=== PATIENT | female | born 1980 | race African-American/Black ===

== ENCOUNTER 2022-03-31 20:18 | Inpatient (IN) | payer OTHER ==
[~2022-03-31] VITALS: Ht 165.1 cm; Wt 50.3 kg
--- NOTE | 2022-03-31 20:30 | NUR ---
TO ER BED 9. [id number] FROM HOME FOR C/O ABD PAIN AND NAUSEA X 1 HOUR.HX OF PANCREATITIS. PT IS ALERT AND ORIENTED. RR IS EVEN AND NONLABORED. CONNECTED TO MONITOR. WARM BLANKET AND EMESIS BAG PROVIDED. AWAITING MD ORDERS
[2022-03-31] MEDS ORDERED: ONDANSETRON HCL/PF 4 MG/2 ML VIAL ONE (20:42)
[2022-03-31] MEDS ORDERED: MORPHINE SULFATE INJ 4 MG/ML DISP.SYRIN ONE ×2 (20:55→21:48)
[2022-03-31 20:56] LABS: BASOPHILS % (AUTO) 0.8 % (0.0-2.0); EOSINOPHILS % (AUTO) 0.1 % (0.0-6.0); HEMATOCRIT 40 % (33-45); HEMOGLOBIN 12.5 g/dL (11.5-14.8); LYMPHOCYTES # (AUTO) 1.2 K/uL (0.8-4.8); LYMPHOCYTES % (AUTO) 21.7 % (20.0-44.0); MEAN CORPUSCULAR HGB CONC 32 g/dl (31.0-36.0); MEAN CORPUSCULAR VOLUME 87 fL (82-100); MONOCYTES # (AUTO) 0.4 K/uL (0.1-1.30); MONOCYTES % (AUTO) 6.3 % (2.0-12.0); NEUTROPHILS # (AUTO) 3.9 K/uL (1.8-8.9); NEUTROPHILS % (AUTO) 71.1 % (43.0-81.0); PLATELET COUNT (AUTO) 561 K/uL (150-450); RED BLOOD CELL COUNT(AUTO) 4.56 MIL/uL (4.0-5.2); WHITE BLOOD COUNT (AUTO) 5.6 K/uL (4.3-11.0)
[2022-03-31] MEDS ORDERED: MORPHINE SULFATE INJ 2 MG/ML DISP.SYRIN IV ONE ×2 (21:00→22:00)
[2022-03-31] MEDS ORDERED: IV NS 0.9% 1,000 ML BAG IV ONE (21:00)
[2022-03-31] MEDS ORDERED: ONDANSETRON HCL/PF 4 MG/2 ML VIAL IVP ONE (21:00)
[2022-03-31 21:10] LABS: CALCIUM, SERUM 9.6 mg/dL (8.5-10.1); CREATININE 0.9 mg/dL (0.6-1.3); POTASSIUM 3.4 mmol/L (3.5-5.1)
[2022-03-31 21:16] LABS: ALBUMIN 4.7 g/dL (3.4-5.0); BILIRUBIN,DIRECT 0.3 mg/dL (0.0-0.2); BILIRUBIN,TOTAL 1.3 mg/dL (0.2-1.0); TOTAL PROTEIN, SERUM 9.9 g/dL (6.4-8.2)
[2022-03-31] MEDS ORDERED: METOCLOPRAMIDE HCL 10 MG/2 ML VIAL ONE (21:49)
[2022-03-31] MEDS ORDERED: METOCLOPRAMIDE HCL 10 MG/2 ML VIAL IV ONE (22:00)
--- NOTE | 2022-03-31 22:07 | NUR ---
WAIVER SIGNED RADIOLOGY NOTIFIED
--- NOTE | 2022-03-31 22:16 | NUR ---
PATIENT GOING TO CT
[2022-03-31] MEDS ORDERED: IOHEXOL-300 100 ML VIAL IV ONE (22:18)
[2022-03-31] MEDS ORDERED: IV NS 0.9% 250 ML IV ONE (22:18)
--- NOTE | 2022-03-31 22:43 | NUR ---
COVID SWAB DONE AND SENT TO LAB
[2022-03-31] MEDS ORDERED: Z GUARD REMEDY 4 OZ OINT TP PRN (23:30)
[2022-03-31] MEDS ORDERED: MORPHINE SULFATE INJ 2 MG/ML DISP.SYRIN IV PRN (23:30)
[2022-03-31] MEDS ORDERED: ZOLPIDEM TARTRATE 5 MG TABLET PO PRN (23:30)
[2022-03-31] MEDS ORDERED: DEXTROSE 50%-WATER 50 ML DISP.SYRIN IV PRN (23:30)
[2022-03-31] MEDS ORDERED: MAGNESIUM HYDROXIDE 30 ML UDC PO PRN (23:30)
[2022-03-31] MEDS ORDERED: MAG HYDROX/AL HYDROX/SIMETH 30 ML UDC PO PRN (23:30)
[2022-03-31] MEDS ORDERED: ACETAMINOPHEN 325 MG TABLET PO PRN (23:30)
[2022-03-31] MEDS ORDERED: INSULIN REGULAR, HUMAN 100 UNIT/ML 3 ML VIAL SQ PRN (23:30)
--- NOTE | 2022-04-01 01:06 | NUR ---
PT IS SLEEPING, EASILY AROUSABLE WITH VERBAL STIMULI. CONNECTED TO MONITOR.
[2022-04-01] MEDS ORDERED: MORPHINE SULFATE INJ 2 MG/ML DISP.SYRIN ONE (02:44)
[2022-04-01] MEDS ORDERED: ONDANSETRON HCL/PF 4 MG/2 ML VIAL ONE (02:44)
[2022-04-01] MEDS: MORPHINE SULFATE INJ 2 MG/ML DISP.SYRIN IV PRN ×4 (02:50→21:05)
[2022-04-01] MEDS: ONDANSETRON HCL/PF 4 MG/2 ML VIAL IVP PRN ×2 (02:50→21:05)
[2022-04-01] MEDS: METOCLOPRAMIDE HCL 10 MG/2 ML VIAL IV SCH ×4 (06:00→17:08)
[2022-04-01] MEDS ORDERED: BLOOD SUGAR DIAGNOSTIC 1 EACH STRIP IN SCH (07:30)
--- NOTE | 2022-04-01 07:49 | NUR ---
REPORT GIVEN TO YUKI FOR ISSA
[2022-04-01 07:50] LABS: BASOPHILS % (AUTO) 0.9 % (0.0-2.0); EOSINOPHILS % (AUTO) 0.3 % (0.0-6.0); HEMATOCRIT 31 % (33-45); HEMOGLOBIN 9.9 g/dL (11.5-14.8); LYMPHOCYTES # (AUTO) 2.7 K/uL (0.8-4.8); LYMPHOCYTES % (AUTO) 51.9 % (20.0-44.0); MEAN CORPUSCULAR HGB CONC 32 g/dl (31.0-36.0); MEAN CORPUSCULAR VOLUME 86 fL (82-100); MONOCYTES # (AUTO) 0.6 K/uL (0.1-1.30); MONOCYTES % (AUTO) 11.2 % (2.0-12.0); NEUTROPHILS # (AUTO) 1.9 K/uL (1.8-8.9); NEUTROPHILS % (AUTO) 35.7 % (43.0-81.0); PLATELET COUNT (AUTO) 416 K/uL (150-450); RED BLOOD CELL COUNT(AUTO) 3.55 MIL/uL (4.0-5.2); WHITE BLOOD COUNT (AUTO) 5.3 K/uL (4.3-11.0)
[2022-04-01] MEDS ORDERED: INSU100V10 SQ (07:51)
[2022-04-01] MEDS ORDERED: INSU100V SQ (07:51)
[2022-04-01] MEDS ORDERED: HYDR-3980 PO (07:51)
[2022-04-01 08:07] LABS: ALBUMIN 2.8 g/dL (3.4-5.0); BILIRUBIN,TOTAL 1.1 mg/dL (0.2-1.0); CALCIUM, SERUM 8.2 mg/dL (8.5-10.1); CREATININE 0.8 mg/dL (0.6-1.3); MAGNESIUM 1.9 mg/dL (1.8-2.4); PHOSPHORUS 4.4 mg/dL (2.5-4.9); POTASSIUM 3.2 mmol/L (3.5-5.1); TOTAL PROTEIN, SERUM 6.4 g/dL (6.4-8.2)
--- NOTE | 2022-04-01 08:19 | NUR ---
PT TRANSFERRED TO [facility] VIA GURNEY. HANDOFF GIVEN TO RN ASSIGNED.
[2022-04-01 08:20] VITALS: BP 123/79
--- NOTE | 2022-04-01 08:20 | NUR ---
MS RN OPENING NOTES RECEIVED PATIENT FROM ER ENDORSED BY VÍCTOR SHEPPARD VIA LANRE AWAKE AND A/O X4. ON ROOM AIR TOLERATING WELL. NO SOB NOTED. NOT IN DISTRESS. WITH COMPLAINTS OF EPIGASTRIC PAIN AT THE SCALE OF 5/10, COMFORT MEASURES PROVIDED. WITH IV ACCESS AT THE RIGHT AC G20 AND AT THE LEFT AC G20, SALINE LOCKED, PATENT AND INTACT. SKIN IS INTACT. SAFETY MEASURES IN PLACED. CALL LIGHT WITHIN REACH. BED ON LOWEST LOCKED POSITION, SIDE RAILS UP X2. WILL CONTINUE TO MONITOR..
[2022-04-01] MEDS ORDERED: PANTOPRAZOLE 40 MG VIAL IV SCH (09:00)
--- NOTE | 2022-04-01 09:19 | NUR ---
SS consult requested over the weekend for ETOH Abuse. SW will follow up at a later time.
[2022-04-01] MEDS: IV NS 0.9% 1,000 ML IV PRN (09:53)
[2022-04-01] MEDS ORDERED: DEXTROSE 50%-WATER 50 ML DISP.SYRIN IV PRN (10:30)
[2022-04-01 10:49] VITALS: BP 123/79
[2022-04-01] MEDS: POTASSIUM CL. PREMIX PERIPHER. 50 ML IV SCH ×2 (11:54→13:54)
[2022-04-01] MEDS: METRONIDAZOLE 250 MG TABLET PO SCH ×4 (11:57→21:06)
[2022-04-01] MEDS: CIPROFLOXACIN HCL 250 MG TABLET PO SCH ×2 (11:57→21:06)
[2022-04-01] MEDS: BLOOD SUGAR DIAGNOSTIC 1 EACH STRIP IN SCH ×3 (12:05→21:26)
[2022-04-01] MEDS: INSULIN REGULAR, HUMAN 100 UNIT/ML 3 ML VIAL SQ PRN ×2 (12:09→17:50)
--- NOTE | 2022-04-01 14:25 | NUR ---
SS consult requested for ETOH abuse. Pt. is a 41-year-old female who was admitted to [facility] on 04/01/22 due to pancreatitis. Upon SS consult, pt. is alert and oriented x4. Pt. presents with a normal mood and congruent affect. Pt. appears unkempt and provides appropriate eye contact. Pt. was cooperative throughout the interview. Pt. stated she lives with her cousin at [address] [place] [address]. Pt. stated she did not want to provide any primary contact center specialist information. sales planner explored pt.s substance abuse history. Pt. denied substance use and stated she has not had alcohol in five years. Pt. denied addiction resources. sales planner explored pt.s psychiatric history. Pt. stated she does not have a psychiatric diagnosis. Pt. denied suicidal/homicidal ideation. Pt. denied visual and auditory hallucinations. sales planner will remain available as needed.
[2022-04-01] MEDS ORDERED: POTASSIUM CHLORIDE 10 MEQ TABLET.SA PO ONE ×2 (17:00→17:30)
--- NOTE | 2022-04-01 18:21 | NUR ---
MS RN CLOSING NOTES PATIENT ON BED AWAKE WATCHING TV AND A/O X4. ON ROOM AIR TOLERATING WELL. NO SOB NOTED. NOT IN DISTRESS. WITH NO COMPLAINTS OF PAIN OR DISCOMFORT AT THIS TIME. WITH IV ACCESS AT THE RIGHT AC G20 AND AT THE LEFT AC G20 WITH IVF NS AT 125ML/HR INFUSING WELL. DUE MEDS GIVEN. SAFETY MEASURES IN PLACED. CALL LIGHT WITHIN REACH. BED ON LOWEST LOCKED POSITION, SIDE RAILS UP X2. WILL ENDORSE TO NEXT SHIFT FOR ISSA.
[2022-04-01 20:00] VITALS: BP 109/66
--- NOTE | 2022-04-01 20:02 | NUR ---
RN NOTES RECEIVED REPORT FROM KRISTY JASSO PLAN OF CARE
--- NOTE | 2022-04-01 20:02 | NUR ---
MS RENEE NOTES PATIENT REQUESTED TO BE DISCONNECTED FROM IV FLUIDS SO SHE CAN AMBULATE BEFORE IVF DUE AT 2100. Addendum: 04/01/22 at 2043 by GENNARO STEVENS RN ERROR, WRONG PATIENT
[2022-04-01 21:34] VITALS: BP 109/66
[2022-04-02] MEDS: METOCLOPRAMIDE HCL 10 MG/2 ML VIAL IV SCH ×4 (01:07→11:22)
[2022-04-02] MEDS: MORPHINE SULFATE INJ 2 MG/ML DISP.SYRIN IV PRN ×3 (01:08→11:36)
[2022-04-02] MEDS ORDERED: FUROSEMIDE 40 MG/4 ML VIAL IV ONE (02:00)
[2022-04-02] MEDS: METRONIDAZOLE 250 MG TABLET PO SCH ×2 (05:20→13:00)
[2022-04-02] MEDS: IV NS 0.9% 1,000 ML IV PRN (05:47)
[2022-04-02 06:31] LABS: BASOPHILS % (AUTO) 0.7 % (0.0-2.0); EOSINOPHILS % (AUTO) 1.4 % (0.0-6.0); HEMATOCRIT 29 % (33-45); HEMOGLOBIN 9.5 g/dL (11.5-14.8); LYMPHOCYTES # (AUTO) 1.9 K/uL (0.8-4.8); LYMPHOCYTES % (AUTO) 47.6 % (20.0-44.0); MEAN CORPUSCULAR HGB CONC 32 g/dl (31.0-36.0); MEAN CORPUSCULAR VOLUME 87 fL (82-100); MONOCYTES # (AUTO) 0.3 K/uL (0.1-1.30); MONOCYTES % (AUTO) 8.4 % (2.0-12.0); NEUTROPHILS # (AUTO) 1.7 K/uL (1.8-8.9); NEUTROPHILS % (AUTO) 41.9 % (43.0-81.0); PLATELET COUNT (AUTO) 393 K/uL (150-450); RED BLOOD CELL COUNT(AUTO) 3.38 MIL/uL (4.0-5.2); WHITE BLOOD COUNT (AUTO) 3.9 K/uL (4.3-11.0)
[2022-04-02] MEDS: BLOOD SUGAR DIAGNOSTIC 1 EACH STRIP IN SCH ×3 (06:31→17:11)
--- NOTE | 2022-04-02 06:32 | NUR ---
MS RN CLOSING NOTES PATIENT ON BED AWAKE WATCHING TV AND A/O X4. ABLE TO MAKE NEEDS KNOWN; BREATHING EVEN AND UNLABORED; TOLERATING ROOM AIR WELL; NO SOB NOTED. NOT IN DISTRESS. LEFT WRIST #22 INTACT AND PATENT; DUE MEDS GIVEN; PATIENT REPORTED PAIN MANAGEMENT HELPED THROUGHOUT SHIFT; ALL NEEDS RENDERED; SAFETY MEASURES IN PLACED. CALL LIGHT WITHIN REACH. BED ON LOWEST LOCKED POSITION, SIDE RAILS UP X2. WILL ENDORSE TO NEXT SHIFT FOR ISSA.
[2022-04-02 07:14] LABS: CALCIUM, SERUM 8.1 mg/dL (8.5-10.1); CREATININE 0.7 mg/dL (0.6-1.3); MAGNESIUM 1.7 mg/dL (1.8-2.4); PHOSPHORUS 4.6 mg/dL (2.5-4.9); POTASSIUM 4.3 mmol/L (3.5-5.1)
--- NOTE | 2022-04-02 07:30 | NUR ---
MS RN OPENING NOTES RECEIVED PATIENT ON BED RESTING AND A/O X4. ON ROOM AIR TOLERATING WELL. NO SOB NOTED. NOT IN DISTRESS. WITH NO COMPLAINTS OF PAIN OR DISCOMFORT AT THIS TIME. WITH IV ACCESS AT THE LEFT WRIST G22 WITH IVF NS AT 125ML/HR INFUSING WELL. SAFETY MEASURES IN PLACED. CALL LIGHT WITHIN REACH. BED ON LOWEST LOCKED POSITION, SIDE RAILS UP X2. WILL CONTINUE TO MONITOR.
[2022-04-02 08:00] VITALS: BP 124/88
[2022-04-02] MEDS: CIPROFLOXACIN HCL 250 MG TABLET PO SCH (08:31)
[2022-04-02] MEDS ORDERED: PANTOPRAZOLE 40 MG TABLET.DR PO SCH (09:00)
[2022-04-02] MEDS ORDERED: MAGNESIUM OXIDE 400 MG TABLET PO ONE (11:00)
[2022-04-02] MEDS: INSULIN REGULAR, HUMAN 100 UNIT/ML 3 ML VIAL SQ PRN (11:43)
[2022-04-02] MEDS ORDERED: METR500T PO (15:41)
[2022-04-02] MEDS ORDERED: CIPR500T5 PO (15:41)
[2022-04-02 16:00] VITALS: BP 134/91
--- NOTE | 2022-04-02 17:30 | NUR ---
MS CITRUS PEELER NOTES PATIENT WAS SEEN BY DR. DONAHUE AND ORDERED PATIENT FOR DISCHARGE WHEN PATIENT IS ABLE TO TOLERATE CLEAR LIQUID LIQUID DIET. FOR DISCHARGE TO HOME. PT WAS ABLE TO TOLERATE HER DIET. DISCHARGE INSTRUCTION AND EDUCATION WERE PROVIDED TO THE PATIENT. PATIENT VERBALIZED UNDERSTANDING. IV LINE NAME WRIST BAND REMOVED. ACCOMPANIED PATIENT TO THE [facility] AMBULATORY IN STABLE CONDITION. MD AND CHARGE NURSE ARE AWARE OF THE DISCHARGE.
== END 2022-04-02 17:44 | disposition home or self-care (01) | DRG 282 ==
LOC: ER 20:21 → TRANSITION 04-01 02:28 → MED 04-01 07:51
PROVIDERS: ADMIT Nurse Practitioner Acute Care; ATTEND Student in an Organized Health Care Education/Training Program
DX: K85.20 Alcohol induced acute pancreatitis without necrosis or infection (principal); E11.9 Type 2 diabetes mellitus without complications; K86.0 Alcohol-induced chronic pancreatitis; E80.6 Other disorders of bilirubin metabolism; Z20.822 Contact with and (suspected) exposure to COVID-19; Z72.89 Other problems related to lifestyle; Y90.9 Presence of alcohol in blood, level not specified; K52.9 Noninfective gastroenteritis and colitis, unspecified
CPT/HCPCS: 36415; 80048-TC; 80053-TC; 80076-TC; 82962-TC; 83690-TC; 83735-TC; 84100-TC; 84703-TC; 85025-TC; 87081-TC; C9113; C9803; G0378; J1815; J2270; J2405; J2765; J3480; J7030; J7050; Q9967

== ENCOUNTER 2022-04-16 19:37 | Inpatient (IN) | payer OTHER ==
[~2022-04-16] VITALS: Ht 165.1 cm; Wt 50.8 kg
[~2022-04-16 19:37] MED LIST: CIPR500T5 PO; HYDR-3980 PO; INSU100V SQ; INSU100V10 SQ; METR500T PO
--- NOTE | 2022-04-16 19:45 | NUR ---
[id number] FROM HOME C/O ABD PAIN STARTED THIS AFTERNOON. PATIENT IS AAOX4. AMBULATORY. ABLE TO MAKE NEEDS KNOWN. ATTACHED TO MONITOR. VITALS CHECKED. PATIENT CAME WITH PERIPHERAL LINE ON LEFT HAND G20.
--- NOTE | 2022-04-16 19:48 | NUR ---
URINE SPECIMEN SENT TO LAB.
[2022-04-16] MEDS ORDERED: ONDANSETRON HCL/PF 4 MG/2 ML VIAL ONE (20:15)
[2022-04-16] MEDS ORDERED: MORPHINE SULFATE INJ 4 MG/ML DISP.SYRIN ONE (20:15)
[2022-04-16] MEDS ORDERED: IV NS 0.9% 1,000 ML BAG IV ONE (20:30)
[2022-04-16] MEDS ORDERED: ONDANSETRON HCL/PF 4 MG/2 ML VIAL IVP ONE (20:30)
[2022-04-16] MEDS ORDERED: MORPHINE SULFATE INJ 2 MG/ML DISP.SYRIN IV ONE (20:30)
[2022-04-16 20:51] LABS: BASOPHILS % (AUTO) 0.8 % (0.0-2.0); EOSINOPHILS % (AUTO) 0.1 % (0.0-6.0); HEMATOCRIT 35 % (33-45); HEMOGLOBIN 10.7 g/dL (11.5-14.8); LYMPHOCYTES # (AUTO) 1.3 K/uL (0.8-4.8); LYMPHOCYTES % (AUTO) 23.7 % (20.0-44.0); MEAN CORPUSCULAR HGB CONC 30 g/dl (31.0-36.0); MEAN CORPUSCULAR VOLUME 88 fL (82-100); MONOCYTES # (AUTO) 0.5 K/uL (0.1-1.30); NEUTROPHILS # (AUTO) 3.8 K/uL (1.8-8.9); NEUTROPHILS % (AUTO) 67.4 % (43.0-81.0); PLATELET COUNT (AUTO) 426 K/uL (150-450); RED BLOOD CELL COUNT(AUTO) 4.02 MIL/uL (4.0-5.2); WHITE BLOOD COUNT (AUTO) 5.6 K/uL (4.3-11.0)
[2022-04-16 21:11] LABS: ALBUMIN 3.6 g/dL (3.4-5.0); BILIRUBIN,DIRECT 0.2 mg/dL (0.0-0.2); BILIRUBIN,TOTAL 0.7 mg/dL (0.2-1.0); CALCIUM, SERUM 9.3 mg/dL (8.5-10.1); CREATININE 0.9 mg/dL (0.6-1.3); POTASSIUM 3.9 mmol/L (3.5-5.1); TOTAL PROTEIN, SERUM 8.1 g/dL (6.4-8.2)
--- NOTE | 2022-04-16 21:23 | NUR ---
CRITICAL BS 737
[2022-04-16 21:30] LABS: BILIRUBIN,URINE NEGATIVE (NEGATIVE); COLOR,URINE YELLOW (YELLOW); LEUKOCYTE ESTERASE ,URINE NEGATIVE (NEGATIVE); NITRITE, URINE NEGATIVE (NEGATIVE); PH,URINE 5.5 (5.0-8.0); PROTEIN,URINE NEGATIVE (NEGATIVE); UGLUCOSE >=1000 mg/dL (NEGATIVE); UROBILINOGEN,URINE 0.2 EU/dL (0.2)
[2022-04-16] MEDS ORDERED: IV NS 0.9% 1,000 ML IV ONE (22:00)
[2022-04-16] MEDS ORDERED: INSULIN REGULAR, HUMAN 100 UNIT/ML 10 ML VIAL SQ ONE (22:00)
--- NOTE | 2022-04-16 23:18 | NUR ---
ROOM 320-2
[2022-04-16] MEDS ORDERED: INSULIN DETEMIR 100 UNIT/ML CARTRIDGE SQ SCH (23:30)
[2022-04-16] MEDS ORDERED: ACETAMINOPHEN 325 MG TABLET PO PRN (23:30)
[2022-04-16] MEDS ORDERED: IV NS 0.9% 1,000 ML IV PRN (23:30)
--- NOTE | 2022-04-16 23:36 | NUR ---
CLINICALS INFORMATION RELAY TO CARMELA CHICKEN HATCHERY HELPER. GAVE VERBAL AUTH FOR PT TO STAY
[2022-04-17] VITALS: BP 128/99
--- NOTE | 2022-04-17 00:12 | NUR ---
MRSA SWAB DONE ON RIGHT NOSTRIL AND SENT TO LAB
[2022-04-17] MEDS ORDERED: *INSULIN REGULAR(HUMULIN R)HUM 100 UNIT/ML VIAL SQ PRN (00:30)
[2022-04-17] MEDS ORDERED: DEXTROSE 50%-WATER 50 ML DISP.SYRIN IV PRN (00:30)
--- NOTE | 2022-04-17 00:30 | NUR ---
WHEELED PATIENT TO M/S HICKS 320-2
--- NOTE | 2022-04-17 00:35 | NUR ---
RN ADMITTING NOTE PATIENT RECEIVED FROM CHANA RENEE FROM ER FOR HYPERGLYCEMIA. PATIENT IS A/O X 4 ABLE TO MAKE NEEDS KNOWN. PATIENT IS ON RA, TOLERATING WELL WITH 100% O2 SATURATION. PATIENT COMPLAINS OF 9/10 ABDOMINAL PAIN, WILL MANAGE PAIN APPROPRIATELY. PER PATIENT, SHE LIVES ALONE. ONLY DRINKS OCCASIONALLY AND DENIES ANY ALCOHOL ABUSE. COVID VACCINATED X 2. PATIENT IS AMBULATORY AND CONTINENT. LFA 20 G PATENT AND INTACT. BELONGINGS INVENTORIED. ORIENTED PATIENT TO ROOM, RN, AND SOCIAL SCIENCE ANALYST. SAFETY MEASURES IN PLACE: BED LOCKED AND IN LOWEST POSITION, CALL LIGHT WITHIN REACH, SIDE RAILS UP. WILL MONITOR PATIENT CLOSELY.
[2022-04-17] MEDS: MORPHINE SULFATE INJ 2 MG/ML DISP.SYRIN IV PRN ×6 (00:43→20:13)
--- NOTE | 2022-04-17 00:43 | NUR ---
RN NOTE PATIENT GIVEN MORPHINE D/T PAIN ON ABDOMEN 04/20.
[2022-04-17] MEDS: IV NS 0.9% 1,000 ML IV PRN ×3 (00:52→20:14)
[2022-04-17] MEDS: INSULIN GLARGINE, 100 UNIT/ML CARTRIDGE SQ SCH ×2 (01:18→22:00)
[2022-04-17] MEDS: ONDANSETRON HCL/PF 4 MG/2 ML VIAL IVP PRN ×2 (01:24→10:17)
--- NOTE | 2022-04-17 01:24 | NUR ---
RN NOTE LEVIMIR NOT AVAILABLE IN THIS HOSPITAL, ORDER CHANGED TO LANTUS 20 UNITS SQ QHS. BS 164 MG/DL, LANTUS GIVEN. ZOFRAN ALSO ADMINISTERED D/T PATIENT BEING NAUSEOUS.
--- NOTE | 2022-04-17 05:35 | NUR ---
RN NOTE PATIENT GIVEN MORPHINE FOR PAIN 9/10 ON THE ABDOMEN.
[2022-04-17] MEDS: BLOOD SUGAR DIAGNOSTIC 1 EACH STRIP VI SCH ×4 (06:37→22:01)
[2022-04-17] MEDS: INSULIN REGULAR, HUMAN 100 UNIT/ML 3 ML VIAL SQ PRN ×3 (06:39→17:08)
[2022-04-17 06:40] LABS: BASOPHILS % (AUTO) 0.6 % (0.0-2.0); EOSINOPHILS % (AUTO) 0.7 % (0.0-6.0); HEMATOCRIT 30 % (33-45); HEMOGLOBIN 9.5 g/dL (11.5-14.8); LYMPHOCYTES # (AUTO) 2.8 K/uL (0.8-4.8); LYMPHOCYTES % (AUTO) 40.2 % (20.0-44.0); MEAN CORPUSCULAR HGB CONC 32 g/dl (31.0-36.0); MEAN CORPUSCULAR VOLUME 86 fL (82-100); MONOCYTES # (AUTO) 0.9 K/uL (0.1-1.30); MONOCYTES % (AUTO) 12.7 % (2.0-12.0); NEUTROPHILS # (AUTO) 3.2 K/uL (1.8-8.9); NEUTROPHILS % (AUTO) 45.8 % (43.0-81.0); PLATELET COUNT (AUTO) 391 K/uL (150-450); RED BLOOD CELL COUNT(AUTO) 3.47 MIL/uL (4.0-5.2)
--- NOTE | 2022-04-17 07:03 | NUR ---
RN CLOSING NOTE PATIENT IN BED, AWAKE. PATIENT'S PAIN MANAGED WITH MORPHINE IV PRN. NO NAUSEA AT THIS TIME. BS 86 MG/DL, NO COVERAGE GIVEN. L HAND IV ACCESS STILL PATENT AND INTACT, INFUSING NS AT 125 ML/HR. SAFETY MEASURES IMPLEMENTED. ALL NEEDS MET AND ATTENDED. ALL ORDERS CARRIED OUT. WILL ENDORSE TO DAY SHIFT NURSE FOR ISSA.
[2022-04-17 07:23] LABS: CALCIUM, SERUM 8.6 mg/dL (8.5-10.1); CREATININE 0.5 mg/dL (0.6-1.3); MAGNESIUM 1.8 mg/dL (1.8-2.4); PHOSPHORUS 3.8 mg/dL (2.5-4.9); POTASSIUM 3.6 mmol/L (3.5-5.1)
--- NOTE | 2022-04-17 07:25 | NUR ---
RN OPENING NOTES RECEIVED PATIENT IN BED, AWAKE, A/O X4, VERBALLY RESPONSIVE. NO SIGNS OF ACUTE DISTRESS NOTED. DENIES ANY PAIN OR DISCOMFORT AT THIS TIME. STABLE ON ROOM AIR, NO SOB NOTED, BREATHING EVEN AND UNLABORED. NOTED WITH IV ACCESS ON LEFT HAND #20G, INTACT AND PATENT, WITH NS @125ML/HR RUNNING. SAFETY MEASURE IN PLACE, BED IN LOWEST AND LOCKED POSITION, SIDE RAILS UP X2, CALL LIGHT PLACED WITHIN EASY REACH. WILL CONTINUE TO MONITOR PATIENT.
[2022-04-17 08:00] VITALS: BP 107/78
[2022-04-17 16:00] VITALS: BP 113/76
--- NOTE | 2022-04-17 18:37 | NUR ---
RN CLOSING NOTES PATIENT IN BED, AWAKE, A/O X4, VERBALLY RESPONSIVE. NO SIGNS OF ACUTE DISTRESS NOTED. REMAINS STABLE ON ROOM AIR, NO SOB NOTED, BREATHING EVEN AND UNLABORED. IV ACCESS ON LEFT HAND #20G, INTACT AND PATENT, WITH NS @125ML/HR INFUSING WELL. MEDICATED WITH MORPHINE FOR C/O ABDOMINAL PAIN. BLOOD SUGAR CHECKED, INSULIN PER SLIDING SCALE GIVEN ORDERED. SAFETY MEASURE MAINTAINED. BED IN LOWEST AND LOCKED POSITION, SIDE RAILS UP X2, CALL LIGHT PLACED WITHIN EASY REACH. WILL ENDORSE TO NEXT SHIFT FOR CONTINUITY OF CARE.
--- NOTE | 2022-04-17 19:30 | NUR ---
RN OPENING NOTE PATIENT IN BED, AWAKE, PATIENT IS ON RA TOLERATING WELL. BREATHING EVEN AND UNLABORED. PATIENT COMPLAINING OF PAIN ON THE ABDOMEN, WILL MANAGE APPROPRIATELY. L HAND 20 G PATENT AND INTACT WITH ONGOING NS AT 125 ML/HR. SAFETY MEASURES IN PLACE: BED LOCKED AND IN LOWEST POSITION, CALL LIGHT WITHIN REACH, SIDE RAILS UP. WILL MONITOR PATIENT CLOSELY.
[2022-04-17 20:00] VITALS: BP 122/92
--- NOTE | 2022-04-17 20:14 | NUR ---
RN NOTE PATIENT COMPLAINING OF PAIN 9/10 ON THE ABDOMEN, MORPHINE GIVEN FOR PAIN MANAGEMENT
--- NOTE | 2022-04-17 21:15 | NUR ---
RN NOTE BS 69 MG/DL, PATIENT GIVEN A SANDWICH AND JUICE. WILL RECHECK BS AT A LATER TIME
--- NOTE | 2022-04-17 21:56 | NUR ---
VÍCTOR SUMMERS BS NOW 157 MG/DL, NO LANTUS OR COVERAGE GIVEN. Addendum: 04/17/22 at 2204 by RUBI KC RN WILL MONITOR PATIENT FOR HYPO/HYPERGLYCEMIA.
[2022-04-17] MEDS ORDERED: INSULIN GLARGINE, 100 UNIT/ML CARTRIDGE SQ SCH (22:00)
--- NOTE | 2022-04-18 00:10 | NUR ---
RN NOTE PATIENT COMPLAINING OF BURNING SENSATION ON L HAND IV SITE, SITE ALSO NOTED TO BE MILDLY SWOLLEN. IV ACCESS REMOVED. ICE PACK APPLIED. WILL INSERT NEW IV ACCESS.
--- NOTE | 2022-04-18 01:06 | NUR ---
FISHERY DIVISION CHIEF NURSE NOTES PATIENT IS A HARD STICK, GOT AN ORDER FROM LOWELL JARQUIN DNP MORPHINE 2 MG IV/IM PRN, ORDER NOTED AND CARRIED OUT
[2022-04-18] MEDS ORDERED: MORPHINE SULFATE INJ 2 MG/ML DISP.SYRIN ONE (01:41)
[2022-04-18] MEDS: MORPHINE SULFATE INJ 2 MG/ML DISP.SYRIN IM/IV PRN ×5 (01:47→22:06)
--- NOTE | 2022-04-18 01:47 | NUR ---
RN NOTE ADMINISTERED MORPHINE IM FOR 10/10 PAIN.
[2022-04-18] MEDS: ONDANSETRON HCL/PF 4 MG/2 ML VIAL IVP PRN ×3 (02:41→16:43)
[2022-04-18] MEDS: HYDROCODONE/APAP 5/325MG TABLET PO PRN ×3 (03:20→20:39)
[2022-04-18] MEDS ORDERED: MORPHINE SULFATE INJ 2 MG/ML DISP.SYRIN IM/IV PRN (03:30)
[2022-04-18] MEDS: BLOOD SUGAR DIAGNOSTIC 1 EACH STRIP VI SCH ×4 (06:43→21:35)
[2022-04-18] MEDS: INSULIN REGULAR, HUMAN 100 UNIT/ML 3 ML VIAL SQ PRN ×3 (06:45→21:26)
--- NOTE | 2022-04-18 07:29 | NUR ---
RN CLOSING NOTE PATIENT IN BED, EYES CLOSED. EASILY AWAKENED. PATIENT'S PAIN MANAGED WITH MORPHINE AND NORCO. PATIENT ON RA, BREATHING EVEN AND UNLABORED. R HAND PATENT AND INTACT. SAFETY MEASURES IN PLACE: BED LOCKED AND IN LOWEST POSITION, CALL LIGHT WITHIN REACH, SIDE RAILS UP. ALL NEEDS MET AND ATTENDED. ALL ORDERS CARRIED OUT. ENDORSED TO DAY SHIFT NURSE FOR ISSA.
[2022-04-18 08:00] VITALS: BP 139/105
[2022-04-18 10:58] LABS: BASOPHILS % (AUTO) 0.6 % (0.0-2.0); EOSINOPHILS % (AUTO) 0.4 % (0.0-6.0); HEMATOCRIT 35 % (33-45); LYMPHOCYTES # (AUTO) 1.2 K/uL (0.8-4.8); LYMPHOCYTES % (AUTO) 25.8 % (20.0-44.0); MEAN CORPUSCULAR HGB CONC 32 g/dl (31.0-36.0); MEAN CORPUSCULAR VOLUME 86 fL (82-100); MONOCYTES # (AUTO) 0.3 K/uL (0.1-1.30); MONOCYTES % (AUTO) 7.1 % (2.0-12.0); NEUTROPHILS # (AUTO) 3.1 K/uL (1.8-8.9); NEUTROPHILS % (AUTO) 66.1 % (43.0-81.0); PLATELET COUNT (AUTO) 434 K/uL (150-450); WHITE BLOOD COUNT (AUTO) 4.7 K/uL (4.3-11.0)
[2022-04-18 11:13] LABS: CREATININE 0.6 mg/dL (0.6-1.3); MAGNESIUM 1.5 mg/dL (1.8-2.4); PHOSPHORUS 3.6 mg/dL (2.5-4.9); POTASSIUM 3.4 mmol/L (3.5-5.1)
[2022-04-18 16:00] VITALS: BP 141/99
--- NOTE | 2022-04-18 18:38 | NUR ---
RN CLOSING NOTE PATIENT RECEIVED IN BED AND SLEEPING. A/O X4 AND ABLE TO VERBALIZE ALL NEEDS. IV ACCESS TO RIGHT HAND INTACT AND PATENT WITH NO INFILTRATION. REQUESTED PRN PAIN MEDICATION WELL PRN NAUSEA MEDICATION ON SHIFT. MEDICATIONS EFFECTIVE WHEN ADMINISTERED. TOLERATED WELL. OBSERVED EPISODE OF EMESIS SHORTLY AFTER BREAKFAST. PATIENT CONTINUES ON CLEAR LIQUID DIET SHE IS UNABLE TO TOLERATE FOOD INTAKE AT THIS TIME. PHYSICIAN AWARE. BLOOD SUGAR LEVELS STABLE ON SHIFT; 1200- 151 (2UNITS INSULIN COVERAGE) 1700 112 (0UNITS). ABLE TO AMBULATE AND VERBALIZE ALL NEEDS. INVESTIGATIONAL MEDICATION ADMINISTERED ON SHIFT @ 1000AM. TOLERATED WELL. SAFETY MEASURES IN PLACE, CALL LIGHT WITHIN REACH. WILL CONTINUE TO MONITOR.
--- NOTE | 2022-04-18 19:46 | NUR ---
RN OPENING NOTES; RECEIVED PATIENT IN BED AAOX4,ON RM AIR TOLERATING WELL,BREATHING EVEN AND UNLABORED.IV ACCESS L HAND 20 G PATENT AND INTACT WITH ONGOING NS AT 125 ML/HR. SAFETY MEASURES IN PLACE: BED LOCKED AND IN LOWEST POSITION, CALL LIGHT WITHIN REACH, SIDE RAILS UP. WILL CONTINUE TO MONITOR.
[2022-04-18 20:00] VITALS: BP 146/98
--- NOTE | 2022-04-18 20:59 | NUR ---
RN NOTES; PT INSERTED A MIDLINE ON R UPPER ARM.PT TAVARES WELL,NO BLEEDING NOTED.
[2022-04-18] MEDS: INSULIN GLARGINE, 100 UNIT/ML CARTRIDGE SQ SCH (21:27)
[2022-04-19] MEDS: ONDANSETRON HCL/PF 4 MG/2 ML VIAL IVP PRN ×4 (00:35→22:06)
--- NOTE | 2022-04-19 01:00 | NUR ---
RN NOTES; PT ASKING ROUTENLY PRN MEDS FOR PAIN IN THE ABDOMINAL AREA,NORCO 5-325MG AND MORPHINE 2MG,NO SIGN A/R NOTED.
[2022-04-19] MEDS: MORPHINE SULFATE INJ 2 MG/ML DISP.SYRIN IM/IV PRN ×6 (02:35→20:33)
--- NOTE | 2022-04-19 06:27 | NUR ---
RN CLOSING NOTES; PATIENT IN BED AAOX4,ON RM AIR TOLERATING WELL,BREATHING EVEN AND UNLABORED.IV ACCESS R HAND 20G SL,MIDLINE R UPPER ARM,PATENT AND INTACT WITH ON GOING NS AT 125 ML/HR.DUE MEDS GIVEN ORDER,ALL NEEDS ATTENDED, SAFETY MEASURES IN PLACE: BED LOCKED AND IN LOWEST POSITION, CALL LIGHT WITHIN REACH, SIDE RAILS UP. WILL ENDORSED TO NEXT SHIFT,
[2022-04-19] MEDS: INSULIN REGULAR, HUMAN 100 UNIT/ML 3 ML VIAL SQ PRN ×3 (06:47→16:48)
[2022-04-19] MEDS: BLOOD SUGAR DIAGNOSTIC 1 EACH STRIP VI SCH ×4 (06:48→22:26)
--- NOTE | 2022-04-19 07:45 | NUR ---
RN OPENING NOTES RECEIVED PATIENT IN BED, ALERT AND ORIENTED X4, ON ROOM AIR, TOLERATING WELL. IV ACCESS ON RIGHT HAND 20G SL, MIDLINE RIGHT UPPER ARM, DRY AND INTACT, NO BLEEDING NOTED. PATIENT COMPLAINED OF NAUSEA. ZOFRAN WILL BE GIVEN ORDERED. SAFETY MEASURES IN PLACE: BED LOWEST POSITION, BED LOCKED, CALL LIGHT WITHIN REACH, SIDE RAILS UP X2.WILL CONTINUE TO MONITOR.
[2022-04-19 08:00] VITALS: BP 151/104
[2022-04-19 09:35] LABS: BASOPHILS % (AUTO) 0.9 % (0.0-2.0); EOSINOPHILS % (AUTO) 0.4 % (0.0-6.0); HEMATOCRIT 30 % (33-45); HEMOGLOBIN 9.4 g/dL (11.5-14.8); LYMPHOCYTES % (AUTO) 44.6 % (20.0-44.0); MEAN CORPUSCULAR HGB CONC 32 g/dl (31.0-36.0); MEAN CORPUSCULAR VOLUME 86 fL (82-100); MONOCYTES # (AUTO) 0.3 K/uL (0.1-1.30); MONOCYTES % (AUTO) 6.4 % (2.0-12.0); NEUTROPHILS # (AUTO) 2.1 K/uL (1.8-8.9); NEUTROPHILS % (AUTO) 47.7 % (43.0-81.0); PLATELET COUNT (AUTO) 358 K/uL (150-450); RED BLOOD CELL COUNT(AUTO) 3.48 MIL/uL (4.0-5.2); WHITE BLOOD COUNT (AUTO) 4.4 K/uL (4.3-11.0)
[2022-04-19 09:45] LABS: CALCIUM, SERUM 8.2 mg/dL (8.5-10.1); CREATININE 0.6 mg/dL (0.6-1.3); MAGNESIUM 1.6 mg/dL (1.8-2.4); POTASSIUM 3.3 mmol/L (3.5-5.1)
[2022-04-19] MEDS: IV NS 0.9% 1,000 ML IV PRN ×2 (15:07→23:22)
[2022-04-19 16:00] VITALS: BP 139/82
--- NOTE | 2022-04-19 18:53 | NUR ---
RN CLOSING NOTES PATIENT IN BED, ALERT AND ORIENTED X4. BREATHING WELL ON ROOM AIR. NO SIGNS OF DISTRESS. IV ACCESS RIGHT UPPER ARM MIDLINE WITH NS AT 125 ML/HR. MEDS GIVEN ORDERED. SAFETY MEASURES IN PLACE: BED AT LOWEST POSITION AND LOCKED, CALL LIGHT WITHIN REACH, SIDE RAILS UP X4. WILL ENDORSE TO ONCOMING NURSE.
[2022-04-19 20:00] VITALS: BP 126/79
--- NOTE | 2022-04-19 20:36 | NUR ---
ABDOMEN PAIN Patient c/o abdomen pain 04/20, denies N/V. Reports no BM in the last 3 days. Given Morphine IV, will reassess pain level.
[2022-04-19] MEDS ORDERED: MAGNESIUM HYDROXIDE 30 ML UDC PO PRN (22:00)
[2022-04-19] MEDS ORDERED: [UNRECOGNIZED DRUG - MIXTURE] PO PRN (22:00)
[2022-04-19] MEDS: HYDROCODONE/APAP 5/325MG TABLET PO PRN (22:08)
[2022-04-19] MEDS: INSULIN GLARGINE, 100 UNIT/ML CARTRIDGE SQ SCH (22:25)
--- NOTE | 2022-04-19 22:26 | NUR ---
ACCU CHECK Bld glucose 228mg/dl. Given 4 units per SS parameters. Patient on Lantus HS.
[2022-04-20] MEDS: MORPHINE SULFATE INJ 2 MG/ML DISP.SYRIN IM/IV PRN ×3 (02:20→10:47)
--- NOTE | 2022-04-20 02:21 | NUR ---
ABDOMEN PAIN Patient c/o abdomen pain 10 described as sharp and cramping. Reports constipated. Given Morphine IV, and MOM. Will monitor results.
--- NOTE | 2022-04-20 06:03 | NUR ---
END OF SHIFT REPORT Patient in bed. Alert Oriented x4. Stabel on room air, in no acute distress. KLAUS midline intact, IVF infusing. Nausea improved with Zofran, no episode of vomiting. Abdomen pain controlled with Concrete and Morphine. Accu check with SS insulin. Ambulate independently. Will endorse to oncoming RN.
--- NOTE | 2022-04-20 06:36 | NUR ---
ABDOMEN PAIN Patient c/o abdomen pain 9/10, denies N/V. Given Morphine IV, will reassess pain level.
[2022-04-20] MEDS: INSULIN REGULAR, HUMAN 100 UNIT/ML 3 ML VIAL SQ PRN ×2 (06:39→12:15)
--- NOTE | 2022-04-20 06:40 | NUR ---
ACCU CHECK Bld glucose 131mg/dl. Given 2 units per SS parameters. Co signed by VÍCTOR Caruso.
[2022-04-20] MEDS: BLOOD SUGAR DIAGNOSTIC 1 EACH STRIP VI SCH ×2 (06:41→12:15)
[2022-04-20 07:22] LABS: BASOPHILS % (AUTO) 0.5 % (0.0-2.0); EOSINOPHILS % (AUTO) 2.3 % (0.0-6.0); HEMATOCRIT 31 % (33-45); HEMOGLOBIN 9.9 g/dL (11.5-14.8); LYMPHOCYTES # (AUTO) 2.4 K/uL (0.8-4.8); LYMPHOCYTES % (AUTO) 49.6 % (20.0-44.0); MEAN CORPUSCULAR HGB CONC 32 g/dl (31.0-36.0); MEAN CORPUSCULAR VOLUME 86 fL (82-100); MONOCYTES # (AUTO) 0.4 K/uL (0.1-1.30); MONOCYTES % (AUTO) 8.2 % (2.0-12.0); NEUTROPHILS # (AUTO) 1.9 K/uL (1.8-8.9); NEUTROPHILS % (AUTO) 39.4 % (43.0-81.0); PLATELET COUNT (AUTO) 406 K/uL (150-450); WHITE BLOOD COUNT (AUTO) 4.9 K/uL (4.3-11.0)
--- NOTE | 2022-04-20 07:27 | NUR ---
RN OPENING NOTES RECEIVED PATIENT IN BED, AWAKE, A/O X4, VERBALLY RESPONSIVE. NO SIGNS OF ACUTE DISTRESS NOTED. PATIENT WITH C/O ABDOMINAL PAIN. WILL MEDICATE NEEDED. STABLE ON ROOM AIR, NO SOB NOTED, BREATHING EVEN AND UNLABORED. NOTED WITH IV ACCESS ON RIGHT HAND #20G, SL, AND RIGHT UPPER ARM MIDLINE #18G, INTACT AND PATENT WITH NS @125ML/HR RUNNING. SAFETY MEASURE IN PLACE, BED IN LOWEST AND LOCKED POSITION, SIDE RAILS UP X2, CALL LIGHT PLACED WITHIN EASY REACH. WILL CONTINUE TO MONITOR PATIENT.
[2022-04-20] MEDS: HYDROCODONE/APAP 5/325MG TABLET PO PRN (07:32)
[2022-04-20] MEDS: IV NS 0.9% 1,000 ML IV PRN (07:50)
[2022-04-20 08:00] VITALS: BP 128/78
[2022-04-20 08:27] LABS: CALCIUM, SERUM 8.6 mg/dL (8.5-10.1); CREATININE 0.6 mg/dL (0.6-1.3); MAGNESIUM 1.7 mg/dL (1.8-2.4); PHOSPHORUS 4.4 mg/dL (2.5-4.9); POTASSIUM 3.7 mmol/L (3.5-5.1)
[2022-04-20] MEDS: Magnesium 1GM/D5W 100ML PREMIX 100 ML IV SCH ×2 (10:13→11:35)
[2022-04-20] MEDS ORDERED: MAG HYDROX/AL HYDROX/SIMETH 30 ML UDC PO PRN (11:30)
--- NOTE | 2022-04-20 14:34 | NUR ---
HRIS DEVELOPER NOTE PATIENT DISCHARGED HOME IN STABLE CONDITION. PATIENT ALERT AND ORIENTED X4, ABLE TO MAKE NEEDS KNOWN, NO SIGNS OF ACUTE DISTRESS. IV ACCESS ON RIGHT UPPER ARM AND RIGHT HAND REMOVED. NO BLEEDING NOTED, PRESSURE DRESSING APPLIED TO SITE. ARM NAMEBAND REMOVED. ALL BELONGINGS ACCOUNTED FOR. FORM SIGNED BY PATIENT. EXITCARE CARE FOLDER GIVEN TO PATIENT, HEALTH TEACHINGS AND DISCHARGE INSTRUCTIONS PROVIDED WITH VERBALIZATION OF UNDERSTANDING. PATIENT LEFT UNIT @1430, PATIENT AMBULATORY, ACCOMPANIED PATIENT TO THE LOBBY. PATIENT CALLED [facility] TO PICK HER UP. CN AWARE OF DISCHARGE.
== END 2022-04-20 14:30 | disposition home or self-care (01) | DRG 48 ==
LOC: ER 19:40 → MED 23:56
PROVIDERS: ADMIT Nurse Practitioner Acute Care; ATTEND Student in an Organized Health Care Education/Training Program
PROC: 05H533Z Insertion of Infusion Device into Right Subclavian Vein, Percutaneous Approach (ICD-10-PCS; principal; 2022-04-18)
PROC: B546ZZA Ultrasonography of Right Subclavian Vein, Guidance (ICD-10-PCS; 2022-04-18)
DX: E11.43 Type 2 diabetes mellitus with diabetic autonomic (poly)neuropathy (principal); K85.20 Alcohol induced acute pancreatitis without necrosis or infection; K86.0 Alcohol-induced chronic pancreatitis; K85.90 Acute pancreatitis without necrosis or infection, unspecified; E11.65 Type 2 diabetes mellitus with hyperglycemia; K31.84 Gastroparesis; E86.0 Dehydration; Z79.4 Long term (current) use of insulin; R19.7 Diarrhea, unspecified; Z20.822 Contact with and (suspected) exposure to COVID-19; Z91.14 Patient's other noncompliance with medication regimen
CPT/HCPCS: 36415; 74018; 80048-TC; 80076-TC; 82962-TC; 83690-TC; 83735-TC; 84100-TC; 84703-TC; 85025-TC; C9803; G0378; J1815; J2270; J2405; J3475; J7030

== ENCOUNTER 2024-03-29 14:01 | Emergency (ER) | payer OTHER ==
[~2024-03-29] VITALS: Ht 165.1 cm; Wt 54.4 kg
[~2024-03-29 14:01] MED LIST changes: -CIPR500T5 PO; -METR500T PO
[2024-03-29] MEDS ORDERED: HYDROCODONE/APAP 5/325MG TABLET ONE ×2 (14:50→18:26)
[2024-03-29] MEDS: HYDROCODONE/APAP 5/325MG TABLET PO ONE (14:59)
[2024-03-29 17:29] LABS: PREGNANCY TEST URINE QUAL NEGATIVE (NEGATIVE)
[2024-03-29] MEDS ORDERED: HYDR-4209 PO (18:19)
[2024-03-29] MEDS ORDERED: KETO10TA2 PO (18:19)
[2024-03-29] MEDS ORDERED: HYDROCODONE/APAP 5/325MG TABLET PO ONE (18:30)
[2024-03-29 19:55] VITALS: BP 119/90; TEMP 98.3; O2SAT 98
== END 2024-03-29 19:57 | disposition home or self-care (01) ==
LOC: ER 14:01
DX: S80.02XA Contusion of left knee, initial encounter (principal); S09.8XXA Other specified injuries of head, initial encounter; M25.552 Pain in left hip; M25.572 Pain in left ankle and joints of left foot; E11.9 Type 2 diabetes mellitus without complications; Z87.19 Personal history of other diseases of the digestive system; Z86.59 Personal history of other mental and behavioral disorders; W10.8XXA Fall (on) (from) other stairs and steps, initial encounter; Y93.89 Activity, other specified; Y92.89 Other specified places as the place of occurrence of the external cause; Y99.8 Other external cause status
CPT/HCPCS: 70450-TC; 72125-TC; 73502; 73564-TC; 73610-TC; 84703-TC